=== PATIENT | male | born 1950 | race Caucasian/White ===

== ENCOUNTER 2021-02-09 08:30 | Inpatient (IN) ==
[2021-02-09] MEDS ORDERED: Cefepime 2 GM in NS 0.9% 50 ML 50 ML IVPB ONE (08:48)
[2021-02-09] MEDS ORDERED: Lactated Ringers 1000 ml BAG 2,000 ML IV ONE (08:51)
[2021-02-09] MEDS ORDERED: Famotidine IV 10 MG/ML 2 ml VIAL (20 mg) IV SLOW PU ONE (08:51)
[2021-02-09] MEDS ORDERED: NS 0.9% 50 ML 50 ML ONE (08:54)
[2021-02-09] MEDS ORDERED: NS 0.9% 500 ml BAG 500 ML ONE (09:17)
[2021-02-09 09:28] LABS: ABS Eosinophils 0.1 10^3/ul (0-0.6); ABS Lymphocytes 0.5 10^3/ul (1.0-4.8); ABS Monocytes 1.1 10^3/ul (0-0.8); ABS Neutrophils 15.2 10^3/ul (1.5-7.7); Eosinophil % 0.5 %; Hematocrit 39 % (42-52); Hemoglobin 13.2 g/dL (14.0-18.0); Lymphocyte % 2.9 %; Mean Corpuscular HGB Conc 34 g/dL (31-36); Mean Corpuscular Hemoglobin 29 pg (27-31); Mean Corpuscular Volume 85 fL (80-94); Mean Platelet Volume 11.4 fL (7.4-10.4); Platelet Count 120 10^3/uL (150-450); Red Blood Count 4.57 10^6 /uL (4.18-5.48); Red Cell Distribution Width 13 % (10-15)
[2021-02-09] MEDS ORDERED: Vancomycin 1,750 MG in NS 0.9% 500 ml BAG 500 ML IVPB ONE (09:30)
[2021-02-09] MEDS ORDERED: Cefepime 2 GM IV - ED ONCE IV ONE (09:30)
[2021-02-09 09:37] LABS: Activated Partial Thrombo Time 28.6 seconds (26.0-38.0); INR 1.2 (0.82-1.09)
[2021-02-09 09:42] LABS: Albumin/Globulin Ratio 1.5 (1-3); Calcium 9.5 mg/dL (8.6-10.3); Globulin 2.7 g/dL (2-4); Indirect Bilirubin 0.8 mg/dL (0.3-1.0); Magnesium 1.1 mg/dL (1.9-2.7); Potassium 3.8 mmol/L (3.5-5.0); Total Bilirubin 0.9 mg/dL (0.2-1.0); Total Protein 6.7 g/dL (6.4-8.9)
[2021-02-09] MEDS ORDERED: Magnesium Sulfate 2 gm BAG 2 GM/50 ML BAG IVPB ONE (12:10)
[2021-02-09] MEDS ORDERED: Ondansetron 4 mg VIAL 2 MG/ML 2 ml VIAL IV PRN (14:16)
[2021-02-09] MEDS ORDERED: Al Hydrox/Mg Hydrox/Simet LIQ 30 ML UDC PO PRN (14:16)
[2021-02-09] MEDS ORDERED: Dextrose 50% Syringe 50 ml 25 GM/50 ML SYRINGE IV PUSH PRN (14:42)
[2021-02-09] MEDS ORDERED: Vancomycin per Pharmacy 1 EA NOTE FOLLOW UP SCH (15:00)
[2021-02-09] MEDS: NS 0.9% 1000 ml BAG 1,000 ML IV SCH (16:41)
[2021-02-09 18:18] LABS: Urine Appearance Cloudy; Urine Bilirubin Negative (Negative); Urine Blood Negative (Negative); Urine Color Yellow; Urine Glucose Negative (Negative); Urine Ketones Negative (Negative); Urine Nitrite Negative (Negative); Urine Protein Negative (Negative); Urine Specific Gravity 1.016 (1.002-1.030); Urine Urobilinogen Negative (Negative)
[2021-02-09] MEDS: Heparin 5000 UNITS/ML 1 mL VIAL SUBCUT SCH (21:15)
[2021-02-09] MEDS: Cefepime 2 GM in Dextrose 2 GM/50 ML BAG IV SCH (21:16)
[2021-02-10] MEDS: NS 0.9% 1000 ml BAG 1,000 ML IV SCH ×2 (02:44→14:24)
[2021-02-10 03:11] LABS: ABS Basophils 0.1 10^3/ul (0-0.2); ABS Lymphocytes 0.8 10^3/ul (1.0-4.8); ABS Monocytes 1.1 10^3/ul (0-0.8); Eosinophil % 0.2 %; Hematocrit 32 % (42-52); Hemoglobin 11.2 g/dL (14.0-18.0); Lymphocyte % 5.1 %; Mean Corpuscular HGB Conc 35 g/dL (31-36); Mean Corpuscular Hemoglobin 30 pg (27-31); Mean Corpuscular Volume 85 fL (80-94); Red Blood Count 3.78 10^6 /uL (4.18-5.48); Red Cell Distribution Width 14 % (10-15); White Blood Count 16.1 10^3/uL (3.5-10.8)
[2021-02-10 03:28] LABS: Albumin 3.3 g/dL (3.2-5.2); Albumin/Globulin Ratio 1.4 (1-3); Calcium 8.4 mg/dL (8.6-10.3); EGFR African American 55.2 (>60); EGFR Non-African American 45.7 (>60); Globulin 2.4 g/dL (2-4); Total Bilirubin 1.1 mg/dL (0.2-1.0); Total Protein 5.7 g/dL (6.4-8.9)
[2021-02-10 03:35] LABS: Mean Platelet Volume 11.2 fL (7.4-10.4); Platelet Count 96 10^3/uL (150-450)
[2021-02-10] MEDS ORDERED: Vancomycin Random Level NOTE FOLLOW UP ONE (06:00)
[2021-02-10] MEDS: Heparin 5000 UNITS/ML 1 mL VIAL SUBCUT SCH ×3 (06:18→21:36)
[2021-02-10] MEDS: Cefepime 2 GM in Dextrose 2 GM/50 ML BAG IV SCH ×2 (08:19→21:36)
[2021-02-10] MEDS: Vancomycin 1000 MG in NS 0.9% 250 ML IVPB SCH ×2 (11:08→22:27)
[2021-02-11] MEDS: NS 0.9% 1000 ml BAG 1,000 ML IV SCH (02:16)
[2021-02-11] MEDS: Heparin 5000 UNITS/ML 1 mL VIAL SUBCUT SCH ×2 (05:48→14:05)
[2021-02-11 06:31] LABS: Hematocrit 34 % (42-52); Hemoglobin 11.6 g/dL (14.0-18.0); Mean Corpuscular HGB Conc 34 g/dL (31-36); Mean Corpuscular Hemoglobin 30 pg (27-31); Mean Corpuscular Volume 86 fL (80-94); Mean Platelet Volume 11.1 fL (7.4-10.4); Platelet Count 93 10^3/uL (150-450); Red Blood Count 3.93 10^6 /uL (4.18-5.48); Red Cell Distribution Width 14 % (10-15)
[2021-02-11 06:48] LABS: Calcium 8.8 mg/dL (8.6-10.3); EGFR African American 69.3 (>60); EGFR Non-African American 57.3 (>60); Potassium 4.6 mmol/L (3.5-5.0)
[2021-02-11] MEDS: Cefepime 2 GM in Dextrose 2 GM/50 ML BAG IV SCH (08:47)
[2021-02-11] MEDS: Vancomycin 1000 MG in NS 0.9% 250 ML IVPB SCH (10:07)
[2021-02-11 12:17] VITALS: BP 141/83
[2021-02-12] MEDS ORDERED: Vancomycin Trough Check NOTE FOLLOW UP ONE (09:30)
== END 2021-02-11 15:23 | disposition home or self-care (01) | DRG 872 ==
LOC: ED 08:30 → MEDTELE 14:16
PROVIDERS: ADMIT Hospitalist; ATTEND Internal Medicine